=== PATIENT | male | born 1940 | race Caucasian/White ===

== ENCOUNTER → 2023-08-05 | Outpatient (CLI) | payer SELFPAY, OTHER ==
--- NOTE | 2023-08-05 12:13 | CT_ITS ---
EXAM: CT LEFT LOWER EXTREMITY WITHOUT INTRAVENOUS CONTRAST CLINICAL INDICATION: PRE OP KNEE TECHNIQUE: Helically acquired images were obtained of the left lower extremity without intravenous contrast. 2-D reformats were performed by the technologist. CTDIvol = ( 24.16 ) mGy, DLP = ( 1869.99 ) mGycm This CT exam was performed using one or more of the following dose reduction techniques: automated exposure control, adjustment of the mA and/or kV according to patient size, and/or use of iterative reconstruction technique. COMPARISON: No relevant prior studies available. FINDINGS: BONES/JOINTS: Moderate to severe tricompartmental osteoarthrosis with lateral subluxation as well as anterior subluxation of the tibia relative to the femur. Small posterior calcaneal enthesophyte. Lateral subluxation of the patella relative to the femur. Moderate suprapatellar joint effusion. No tibiotalar joint effusion. Ankle mortise intact. No acute fracture. No sclerotic or destructive changes. SOFT TISSUES: Unremarkable. No soft tissue swelling or gas. No radiopaque foreign body. No soft tissue masses or fluid collections. REPRODUCTIVE: Prostatomegaly is nonspecific. Correlate with PSA levels. CT/Extremity Lower without Contra IMPRESSION: 1. Moderate to severe tricompartmental osteoarthrosis with lateral subluxation as well as anterior subluxation of the tibia relative to the femur. 2. Lateral subluxation of the patella relative to the femur. Electronically Signed: Laci Rodríguez MD at 1:15 EST ,
== END | disposition home or self-care (01) ==
PROVIDERS: PCP Family Medicine; Referring Provider Student in an Organized Health Care Education/Training Program; Visit Provider Student in an Organized Health Care Education/Training Program
DX: M17.12 Unilateral primary osteoarthritis, left knee (principal)
CPT/HCPCS: 73700

== ENCOUNTER 2023-08-18 17:04 | Observation (INO) | payer SELFPAY, OTHER ==
--- NOTE | 2023-08-05 12:09 | EKG12_ITS ---
Test Reason : PRE OP Blood Pressure : / mmHG Vent. Rate : 096 BPM Atrial Rate : 096 BPM P-R Int : 198 ms QRS Dur : 088 ms QT Int : 322 ms P-R-T Axes : 048 146 063 degrees QTc Int : 406 ms Normal sinus rhythm Left posterior fascicular block Abnormal ECG Confirmed by JOSE FLORENCE, FRANCISCO ([id number]), news copy editor LUISITO ELLIOTT ([id number]) on 08/10/2023 12:19:49 PM Referred By: Houston Hahn Confirmed By:FRANCISCO GARCIA MD
[2023-08-05 13:45] LABS: Absolute Lymphocyte Count 2.04 X10^3/uL (0.83-4.51); Absolute Neutrophil Count 3.7 X10^3/uL (2.0-7.7); Basophil# 0.03 X10^3/uL; Basophil% 0.5 % (0-1); Eosinophils% 4.5 % (0-5); Hematocrit 49.9 % (40-54); Hemoglobin 15.8 g/dL (13.0-16.5); Lymphocyte # 2.04 X10^3/ul (0.83-4.51); Lymphocyte % 30.7 % (19-41); Mean Corp Hgb Conc 31.7 g/dL (32-36); Mean Corpuscular Hgb 30.3 pg (27.0-32.0); Mean Corpuscular Volume 95.6 fL (80-94); Mean Platelet Vol. 9.2 fl (6.2-12.0); Monocyte# 0.53 X10^3/uL; NRBC Flagged by Analyzer 0 % (0-5); Neutrophil # 3.72 X10^3/uL (2.7-7.7); Neutrophil % 55.8 % (47-70); Platelet Count 168 K/mm3 (150-450); RBC Distribution Width CV 13.2 % (11.6-14.6); Red Blood Count 5.22 M/mm3 (4.6-6.2); White Blood Count 6.7 K/mm3 (4.4-11.0)
[2023-08-05 14:06] LABS: Albumin, Serum 3.7 g/dL (3.2-5.0); Anion Gap 0 (5-15); BUN 28 mg/dL (7-18); BUN/Creat Ratio 14.7 RATIO (10-20); Calcium,Total 9.1 mg/dL (8.5-10.1); Chloride 102 mmol/L (98-107); Creatinine, Serum 1.91 mg/dL (0.70-1.30); EST Glomerular Filtration Rate 36 mL/min (>60); Est Glom Filt Rate - Afr Amer 44 mL/min (>60); Glucose 98 mg/dL (74-106); Potassium 4.3 mmol/L (3.5-5.1); Sodium Level 139 mmol/L (136-145)
[2023-08-05 14:08] LABS: Magnesium 2.6 mg/dL (1.6-2.6)
[2023-08-05 14:24] LABS: Hemoglobin A1c 5.7 % (3.8-5.6)
[2023-08-18] VITALS (14 sets, daily range): BP systolic 82–129; BP diastolic 56–70; PULSE 61–99; RESP 10–18; TEMP 36.4–37; O2SAT 65–99; BMI 29.2
[2023-08-18] MEDS: Lactated Ringers 1,000 ML 999 ML IV (06:10)
[2023-08-18] MEDS: Magnesium 1 GM over 15 mins IV (06:11)
[2023-08-18] MEDS: Celecoxib 200 MG Capsule 400 MG PO (06:30)
[2023-08-18] MEDS: Acetaminophen 500 MG Tablet 1000 MG PO ×3 (06:31→21:11)
[2023-08-18] MEDS: Gabapentin 600 MG Tablet PO (06:31)
[2023-08-18 06:35] LABS: Bedside Glucose 105 mg/dL (74-106)
--- NOTE | 2023-08-18 07:30 | KNEE_PTH ---
PATIENT: ADDI PRIEST LOC: MS3 U#:[id number] AGE/SX: 82/M ROOM: [facility] [place]18[place]: Dr. Houston Hahn DO : 1940 BED: 1 DIS: 08/19/2023 SPEC #: [id number] RECD: 08/18/23 10:55 STATUS: ANNEMARIE BRUNNER #: [id number] MARINA: 08/18/23 07:[address]: Houston Hahn DEPT: SURGICAL PATHOLOGY RECD BY: Any Woodruff ENTERED: 08/18/23 13:09 SP TYPE: TOTAL KNEE OTHR DR: Dr. Ti Coyle DO Tissues: Knee, NOS Procedures: Decalcification bone/plaque Surgery Specimen Level IV HEADER OPERATION: Robotic assisted left total knee arthroplastyLINDA MAKO PRE-OP DIAGNOSIS: Left knee osteoarthritis TISSUE SUBMITTED: Left total knee resection MICROSCOPIC DIAGNOSIS Left knee, total knee replacement/resection: Pieces of bone with degenerative osteoarthritic changes. Fibroadipose tissue, fibroconnective tissue and reactive synovial tissue. BRE:trisha 08/24/2023 MICROSCOPIC DESCRIPTION Slides are reviewed. GROSS DESCRIPTION Received is one container designated left knee resection. The specimen consists of multiple fragments of jonas-yellow bone measuring in aggregate 16.0 x 12.0 x 2.0 cm. Also in the specimen container are multiple fragments of yellow-white soft tissue measuring in aggregate 9.0 x 8.0 x 2.0 cm. A number of bony fragments contain articular surfaces consistent with tibial plateau and femoral condyle and displaying prominent osteophyte formation, eburnation and bone erosion. Real Estate Executive Assistant sections are submitted in two cassettes as follows: 1 - soft tissue, 2 - bone after decalcification. / AM:trisha 08/18/2023 TC:5 CPT: 51430, 06652
[2023-08-18] MEDS: Lactated Ringers 1,000 ML 75 ML IV ×3 (07:42→11:40)
[2023-08-18] MEDS: Cefazolin 2 GM in 0.9% Normal Saline (100mL Bag) 100 ML IV (07:42)
[2023-08-18] MEDS: dexAMETHasone 10 MG/ML Vial IV (08:00)
[2023-08-18] MEDS: TXA 1000mg in NS100 100ml (IVPB at Incision) 660 MG IV (08:02)
[2023-08-18] MEDS: TXA 1000mg in NS100 100ml (IVPB at Closure) 660 MG IV (09:27)
[2023-08-18] MEDS: JPS (Morphine 10mg/ml) OPERA.SITE (09:35)
--- NOTE | 2023-08-18 13:14 | OP.PCM_ITS ---
Report of Operation Date of Procedure: 08/18/23 Description of Surgical Findings:: Preoperative diagnosis: Left knee primary osteoarthritis Postoperative diagnosis: Left knee primary osteoarthritis Procedure: Cemented left total knee arthroplasty Surgeon: Houston Hahn DO Patternmaker Sample: Rosalia Rosario PA-C Anesthesia: General by postoperative adductor canal block Anesthesiologist: Dr. Cornell Complications: None apparent Drains: None Estimated blood loss: 50 cc Urinary output: None recorded IV fluids: 1800 cc crystalloid Specimens: Total knee resections Surgical implants: Christiane triathlon cruciate retaining femoral #5, primary tibial baseplate #5, triathlon X3 tibial bearing insert CS 11 mm thickness Indications: This is a 82-year-old male seen in the outpatient setting diagnosed with left knee osteoarthritis with significant valgus deformity. He failed nonoperative management with intra-articular corticosteroid injections, activity modification, bracing, vyzx-ang-rdcvrog analgesics. X-rays revealed grade 4 lateral compartment changes. Patellofemoral joint was relatively preserved. I recommended a left total knee arthroplasty. The risk, benefits, alternatives to procedure reviewed with patient at length and he agreed to proceed. Risks included but were not limited to bleeding, infection, loss of life or limb, need for additional surgery, persistent pain, intraoperative or postoperative fracture, instability, loosening of components, wound complications, stiffness, neurovascular injury, DVT or PE. Patient expressed understanding these risks and wished to proceed with surgery. Informed consent was obtained in the outpatient setting. Description of procedure: Patient was identified in the preoperative holding area by name, medical record number, and date of . Informed set was confirmed with the patient. The operative knee was marked with a surgical marker. At time of his procedure, patient brought to the operative suite and positioned supine a standard operating table. General anesthesia was induced and LMA was placed. All bony prominences were well-padded. We then placed a well-padded pneumatic tourniquet on the left upper thigh. The left upper extremity was brought across patient's chest throughout the procedure. We then prepped and draped the left lower extremity in a normal, sterile orthopedic fashion. We performed a timeout with all parties in attendance in agreement with the side, site, operation be performed. No concerns were voiced and would like to proceed with surgery. 2 g Ancef was administered prior to the incision by anesthesia staff as well as 1 g IV TXA. First I exsanguinated the left lower extremity with a Esmarch bandage. Tourniquet was inflated to 280 mmHg which remained up for 68 minutes. Esmarch was removed. I planned a standard midline approach to the left knee approximately 15 cm in length. Skin was sharply incised with a 10 blade scalpel developing full-thickness layers down to the retinaculum. Layers were developed identifying the VMO. I then planned a standard medial parapatellar arthrotomy performed in flexion. The anterior horn of the medial meniscus was released. Hoffa's fat pad was then released. I then everted the patella in extension and brought the knee into 90 degrees of flexion. The anterior horn of the lateral meniscus was then released. The ACL was split in its mid substance with a 10 blade. I then placed pins in the metaphyseal distal femur medial to lateral for the Pastor arrays. In similar fashion, I made a 2 cm incision approximately a handsbreadth distal to the tibial tubercle along the medial aspect of the tibia, drilling 2 bicortical pins for the tibial array. The knee was brought into flexion. The patella was subluxed laterally but not everted. Medial lateral retractors were placed. We then utilized the [employer] software to confirm our planned surgical procedure and oriented with the patient's osseous anatomy. All checks with the [employer] system were confirmed. Patient had a significant fixed varus deformity after performing stress examination utilizing the [employer] software. Sawblade was then brought in. I first started with the tibial cut, ensuring protection of the MCL and patellar tendon. A tibial wafer was then excised. I then proceeded to make the posterior femoral, anterior, anterior chamfer cuts with the same blade. Ligaments were protected with [employer] retractors. Sawblade was then exchanged to perform the distal femoral and posterior chamfer cuts. The robot was then removed from the surgical field. Remaining loose bone and meniscus was excised carefully. Posterior osteophytes were removed from the distal femur with a curved osteotome and rongeur. Trial components were then placed. Balance was excellent in both extension and 90 degrees flexion. No mid flexion instability was apparent. Patella was reduced and Tracking was excellent. We then marked for tibial baseplate. Distal femoral pegs were drilled. Tibial keel was punched. Trials were removed. Periarticular block was administered. The wound was copiously irrigated with normal saline solution. Simplex cement was then mixed on the back table. Components were then cemented in place with excess cement being removed. Cement was allowed to cure with the components in full extension utilizing a 11 mm trial polyethylene component. While the cement was curing, Betadine solution was irrigated into the wound and the wound edges for 3 minutes. After cement had cured fully, trial polyethylene was removed. Tourniquet was deflated. Hemostasis was excellent. An additional 1 g TXA was administered IV. I selected a size 11 mm polyethylene which was placed and impacted per medical and scientific illustrator recommendations. Final components appeared very well balanced with excellent range of motion. The wound was copiously irrigated with normal saline solution. Capsule was closed watertight with #1 strata fix barbed suture. Deeper report muscle layer was reapproximated with 0 Vicryl suture. Dermis was reapproximated buried interrupted 2-0 Vicryl suture. Skin was finally reapproximated thomas. Patient tolerated the procedure well without apparent complication. He was safely awakened in the operative suite, transferred to his hospital bed and subsequently to PACU in stable condition. Need for skilled or assistant: Rosalia Rosario PA-C was critical to the outcome of the case. During the course of the procedure the physician or assistant played a vital role. Her intimate knowledge of my steps in the procedure aided in safe and expedient completion of the procedure. The PA played a vital role in positioning particularly in obtaining the appropriate positioning. The PA was also vital in the retraction of soft tissues during the exposure and projecting vital structures. The PA was also vital and protecting soft tissues during times of bony cuts. She also played a vital role in closure with my direct supervision. The PA was also important during reduction and dislocation of the joint and trials intraoperatively. Post Operative Plan: Patient will be placed in observation overnight for medical monitoring and early convalescence Weightbearing: Range of motion and weightbearing as tolerated left lower extremity. Antibiotics: Ancef 1 g every 8 hours x 3 doses DVT Prophylaxis: Twice daily Eliquis to start tomorrow, SCDs, early mobilization Jha: None Dressing: Maintain silver dressing x7 days X-Rays: 2-week x-rays in the office. Follow-up: 2 weeks in my office for staple removal
--- NOTE | 2023-08-18 13:38 | PN.HOSP_ITS ---
Reason for Visit Reason for Visit: Diagnoses Encounter for other preprocedural examination (08/18/23) Subjective Subjective Patient is s/p left total knee arthroplasty with Dr. Hahn this morning for severe left knee osteoarthritis. Patient seen at bedside in the early afternoon, and son present. Patient was sitting comfortably in bed, conversing normally, no acute distress. Appeared to be fully recovered from a mental status standpoint from anesthesia this morning. Patient was eating his lunch during my interview and was feeling hungry. Reported mild left knee pain, plan was to receive pain medication after he ate his lunch. He otherwise denied any chest pain, shortness of breath, fevers or chills, abdominal pain or discomf ort. No other acute concerns at this time. Objective Data Objective Data Vital Signs: Vital Signs Temp Pulse Resp BP Pulse Ox O2 Del Method O2 Flow Rate 97.6 F L 93 16 103/69 94 Nasal Cannula 2 08/18/23 12:24 08/18/23 12:24 08/18/23 12:24 08/18/23 12:24 08/18/23 12:24 08/18/23 12:44 08/18/23 12:44 FiO2 100 08/18/23 10:45 Oxygen Flow Rate (L/min) 2 Oxygen Delivery Method Nasal Cannula Weight: 93.8 kg Body Mass Index (BMI) 29.2 Intake & Output: Intake and Output for Last 24 Hours 08/16/23 08/17/23 08/18/23 23:59 23:59 23:59 Intake Total 3432 / 3432 Balance 3432 / 3432 Lab / Micro Data 08/05/23 13:27 08/05/23 13:27 Labs: Laboratory Results - last 24 hr 08/18/23 06:17: POC Glucose 105 Micro: Microbiology 08/05/23 13:27 Swab (Method) Nasal Screen MRSA/MSSA - Final Physical Exam Const alert, oriented x3, no apparent distress and average body habitus Constitutional Narrative: Pleasant elderly male, sitting comfortably in bed, conversing normally, no acute distress. General Appearance: cooperative and comfortable HEENT normocephalic, head/scalp atraumatic, hearing grossly normal bilaterally, nasal mucous membranes and turbinates normal and moist oral mucous membranes Eyes PERRL, EOMs intact bilaterally and conjunctivae normal Neck full ROM, no lymphadenopathy and supple Lymph Lymphatic: no lymphadenopathy noted Chest inspection of chest normal Resp normal respiratory effort, normal air movement, no use of accessory muscles and clear to auscultation bilaterally Cardio regular rate, regular rhythm, no murmurs and peripheral pulses 2+ throughout GI normal to inspection, nondistended, normoactive bowel sounds, soft to palpation, non-tender and non-distended Back/Spine normal ROM Extremity Extremity Narrative: Left knee with large ice pack in place. SCDs in place bilaterally. Skin no rashes or lesions noted Neuro moves all extremities and no focal motor deficits Speech: speech normal Psych mental status grossly normal Assessment & Plan Assessment/Plan (1) Osteoarthritis of left knee: PLAN: Plan Patient is an 82-year-old male who presented to [facility] on 08[facility] for planned orthopedic procedure. Medicine consulted postoperatively for medical management. 1. Left knee primary osteoarthritis S/p left total knee arthroplasty with Dr. Hahn with orthopedics on 08/18. Patient tolerated procedure well. Seen at bedside in the afternoon after operation, was sitting comfortably in bed and eating his lunch, reported mild left knee pain that was tolerable with pain medication, otherwise no concerns. ? Orthopedic surgery primary patient. PT/OT/case management consulted. Pain control with scheduled Tylenol, as needed p.o. oxycodone. Continued home gabapentin and duloxetine. Follow-up a.m. labs. Eliquis 2.5 mg twice daily for DVT prophylaxis. Per patient and family, patient is very functional at baseline and wants to go home on discharge. If remains stable, likely okay for discharge home tomorrow with plan for outpatient physical therapy. Chronic medical conditions: ? BPH: Continued home Flomax. ? Insomnia: Continued home trazodone and Klonopin at night. ? GERD: Continued home PPI. DVT prophylaxis: Eliquis CODE STATUS: Full code, verified Expected disposition: Home, tomorrow Total clinical time spent by myself addressing the patient's medical issues, reviewing all the data, and collaborating with patient's care team: 25 minutes. Charges/Coding Visit Charges Inpatient E&M: 23376 [facility] L1
[2023-08-18] MEDS: oxyCODONE 5 MG Tablet PO ×2 (14:28→18:51)
[2023-08-18] MEDS: Cefazolin 1 GM/50 ML BAG IV ×2 (14:29→21:13)
[2023-08-18] MEDS: Tamsulosin HCl 0.4 MG Capsule PO (17:47)
[2023-08-18] MEDS: Gabapentin 800 MG Tablet PO (17:47)
[2023-08-18] MEDS: Senna/Docusate Sodium 1 Tablet 2 TABLET PO (21:12)
[2023-08-18] MEDS: clonazePAM 1 MG Tablet 2 MG PO (21:12)
[2023-08-18] MEDS: traZODone 50 MG Tablet PO (21:12)
[2023-08-19] MEDS: oxyCODONE 5 MG Tablet PO ×2 (00:39→05:29)
[2023-08-19 00:43] VITALS: BP 105/64; PULSE 88; RESP 16; TEMP 36.8; O2SAT 94
[2023-08-19] MEDS: Acetaminophen 500 MG Tablet 1000 MG PO (05:29)
[2023-08-19 05:43] VITALS: BP 121/70; PULSE 82; RESP 18; TEMP 37.2; O2SAT 95
[2023-08-19 06:21] LABS: Mean Corp Hgb Conc 32.5 g/dL (32-36); Mean Corpuscular Hgb 30.5 pg (27.0-32.0); Mean Corpuscular Volume 93.9 fL (80-94); Platelet Count 116 K/mm3 (150-450); RBC Distribution Width CV 13.2 % (11.6-14.6); RBC Distribution Width SD 45.2 fl (35.1-43.9); Red Blood Count 4.26 M/mm3 (4.6-6.2); White Blood Count 8.5 K/mm3 (4.4-11.0)
[2023-08-19 07:16] LABS: Anion Gap 6 (5-15); BUN 31 mg/dL (7-18); BUN/Creat Ratio 15.4 RATIO (10-20); Calcium,Total 8.1 mg/dL (8.5-10.1); Chloride 103 mmol/L (98-107); Creatinine, Serum 2.01 mg/dL (0.70-1.30); EST Glomerular Filtration Rate 34 mL/min (>60); Est Glom Filt Rate - Afr Amer 41 mL/min (>60); Estimated Creatinine Clearance 30.27 ml/min; Glucose 147 mg/dL (74-106); Potassium 4.3 mmol/L (3.5-5.1); Sodium Level 138 mmol/L (136-145)
[2023-08-19] MEDS: Gabapentin 800 MG Tablet PO (10:46)
[2023-08-19] MEDS: DULoxetine Hcl 60 MG Capsule PO (10:46)
[2023-08-19] MEDS: Senna/Docusate Sodium 1 Tablet 2 TABLET PO (10:46)
[2023-08-19] MEDS: APIXABAN 2.5 MG TABLET (WCH) PO (10:46)
[2023-08-19] MEDS: Famotidine 20 MG Tablet PO (10:46)
[2023-08-19 10:55] VITALS: BP 118/58; PULSE 65; RESP 16; TEMP 36.6; O2SAT 95
--- NOTE | 2023-08-19 11:09 | CASEMGMT ---
SATISH ARGUETA Assessment: Face to Face with pt for initial transition planning/care coordination assessment. SATISH ARGUETA introduced self and role at [facility], pt voices understanding and consents to assessment. Pt's is present in the room and also helps to provide some of the below information. Pt is A&O x4 and answers all questions appropriately at this time. Care providers, pharmacy, and demographics verified/updated. Admitting Dx: Robotic Assisted Left Total Knee AR PCP: Leonides Specialists:Pt. states none. Preferred Pharmacy: [facility] Retail Insurance: [employer] ([facility] Package Plan) Prescription Benefit: no LNOK: Nichol Bishop () Living Will/HCPOA: No and No. Pt. and decline to receive information on ADs. Living Arrangements: Pt lives with his in a 1 story home with a basement where the laundry is; otherwise it is a FFSU. 6 steps with railint to enter. Prior to this admission, pt. states he was I in all ADLs and his does the IADLs. Transportation: [employer] Att[employer] (Pt. plans to use [facility] Van for transport home) DME: raised toilet seat, cane, grab bars, walker, potato picker. Pt. declines to receive information on medical alert systems. Pt's asks about getting a pulse ox and SATISH ARGUETA informed her these can be purchased OTC and pt's states they can afford to do this OTC. Pt. denies need for any additional DME. HHC/SNF: denies previous SNF/HHC. Pt. denies need for HHC services upon discharge. States he already has outpatient PT scheduled at [facility] for Tuesday. Pt states no concerns with going home at time of dc. Pt states no further concerns/needs. CM to follow. Advised pt to ask CM if any further question/concerns/needs arise, voices understanding. Pt Goal: Home with family support, outpatient PT at [facility] on Tuesday, and additional follow-up plans in place. Plan: Home with family support, outpatient PT at [facility] on Tuesday, and additional follow-up plans in place.
--- NOTE | 2023-08-19 11:27 | PCM.PN.ORT ---
Subjective Subjective Patient is s/p left sided total knee arthroplasty with Dr. Hahn on .. Patient resting comfortably in bed. Rates pain 2/ 10 at rest. With movement 5/10. States taking Tylenol and oxycodone and ice help to relieve pain. Patient has been up with therapy. Walking with the assit of a walker. Afebrile, no chest pain, shortness of breath, negative calf pain/ erythema, and no other signs of DVT. Objective Data Objective Data Vital Signs: Vital Signs Temp Pulse Resp BP Pulse Ox O2 Del Method O2 Flow Rate 98 F 65 16 118/58 L 95 Room Air 2 08/19/23 10:55 08/19/23 10:55 08/19/23 10:55 08/19/23 10:55 08/19/23 10:55 08/19/23 10:55 08/18/23 15:53 FiO2 100 08/18/23 10:45 Oxygen Flow Rate (L/min) 2 Oxygen Delivery Method Room Air Weight: 93.8 kg Body Mass Index (BMI) 29.2 Intake & Output: Intake and Output for Last 24 Hours 08/17/23 08/18/23 08/19/23 23:59 23:59 23:59 Intake Total 3532 / 3532 1000 / 1000 Output Total 250 / 250 Balance 3282 / 3282 1000 / 1000 Lab / Micro Data 08/19/23 05:31 08/19/23 05:31 Labs: Laboratory Results - last 24 hr 08/19/23 05:31: WBC 8.5, RBC 4.26 L, Hgb 13.0, Hct 40.0, MCV 93.9, MCH 30.5, MCHC 32.5, RDW Std Deviation 45.2 H, RDW Coeff of Anna 13.2, Plt Count 116 L, MPV 9.0, Sodium 138, Potassium 4.3, Chloride 103, Carbon Dioxide 29.0, Anion Gap 6, BUN 31 H, Creatinine 2.01 H, Estim Creat Clear Calc 30.27, Est GFR (MDRD) Af Amer 41 L, Est GFR (MDRD) Non-Af 34 L, BUN/Creatinine Ratio 15.4, Glucose 147 H, Calcium 8.1 L Micro: Microbiology 08/05/23 13:27 Swab (Method) Nasal Screen MRSA/MSSA - Final Physical Exam Narrative Patient resting comfortably in bed No signs of acute distress Satting well on room air Limb is warm to touch, Sensation intact throughout entire lower extremity, including saphenous, sural, superficial and deep peroneal, and tibial distribution. DP/PT pulses bounding. Dorsiflexion plantarflexion strength 5/5 Dressing clean dry intact Calf nontender to palpation, no erythema, no edema. Negative Homans Assessment & Plan Assessment/Plan (1) S/P total knee arthroplasty: PLAN: 1. Will continue PT today. WBAT 2. plan for discharge this afternoon following PT 3. Patient will follow up for post op appointment as previously scheduled in 2 weeks in our office. 4. Patient has outpatient PT appointment as previously scheduled. 5. No acute reactive leukocytosis 6. No post operavtive anemia 7. DVT prophylaxis : Eliquis 2.5 mg twice daily times least 4 weeks 8. Pain control: patient instructed to take tylenol 500mg 2 tablets TID. and oxycodone 1-2 tablets every 4-6 hours only as needed for pain control. 9. ok to remove post op dressing. post op day 7 (2) Osteoarthritis of left knee:
--- NOTE | 2023-08-19 11:35 | PCM.DC ---
Discharge Instructions Diet Discharge Diet: No restrictions Activity Discharge Activity: Return to Normal Activity Weight Bearing Status: Weight bearing as tolerated Keep extremity elevated above heart level: Left Leg Dressing / Incision Call your doctor if your incision/area has: Continuous Slow Oozing, Sudden Increased Bleeding, Increased Pain/ Swelling, Increased Redness, Foul Smelling Discharge and Swelling at the incision site Call your doctor if you observe: Fever of 101 or Higher, Inability to have a bowel movement, Dizziness, Chest pain and Calf discomfort Remove Dressing in: 1 week Cleanse incision/area with: Soap & Water and Keep Dressing Clean & Dry Follow Up Care When: Follow-up as previously scheduled in our office at [facility] Test Results: Test results from this visit will be discussed in further detail at your follow-up appointment, if applicable. Discharge Plan Admission Admit Date/Time: 08/18/23 17:04 Attending Provider: Houston Hahn Primary Care Provider: Ti Coyle Consulting Providers: Lupe Hernandes Discharge Orders/Prescriptions Prescriptions: New acetaminophen 500 mg Tablet 1,000 mg PO Q8 Qty: 180 0RF Eliquis 5 mg Tablet 2.5 mg PO BID Qty: 56 0RF oxycodone 5 mg Tablet 5 - 10 mg PO .q4-6 hours prn PRN (Reason: Pain Score 4-10) 7 Days Qty: 60 0RF sennosides-docusate sodium [Stool Softener-Stimulant Laxat] 8.6-50 mg Tablet 2 tab PO BID Qty: 10 0RF Continued gabapentin 800 MG tablet 800 mg PO DAILY Patient Comments: pain clonazepam [Klonopin] 2 MG tablet 2 mg PO QHS Patient Comments: anxiety duloxetine 60 MG capsule 60 mg PO DAILY biokz-[id number]-epa-fish oil 1 EACH capsule 1 ea PO BID tamsulosin 0.4 MG capsule 0.4 mg PO DAILY@1730 Qty: 30 0RF trazodone 50 mg tablet 50 mg PO .Q HS Patient Comments: TAKE ONE TABLET BY MOUTH ONCE DAILY AT BEDTIME NEEDED calcium carbonate-vitamin D3 500 mg-3.125 mcg (125 unit) tablet 1 tab PO DAILY zinc 50 mg capsule 50 mg PO DAILY Discontinued tramadol 50 MG tablet 100 mg PO TID Patient Comments: pain Referrals / Follow Up: Ti Coyle DO [Primary Care Provider] -
--- NOTE | 2023-08-19 12:50 | CASEMGMT ---
SATISH ARGUETA contacted [facility] and they informed SATISH ARGUETA that they can transport pt.and his home at 2pm today. SATISH ARGUETA informed pt's nurse of this. Pt. has order in for discharge. SATISH ARGUETA in to pt. room to discuss needs at discharge. Pt. denies having any needs at this time. Pt. informed that [facility] can transport he and his home today at 1400. SATISH ARGUETA informed pt. that we did a read check on his Eliquis at [facility] and the read is $525.83. Pt and his state that pt. already has Elquis at home that will last pt. for the amount he needs to match the order on his hospital discharge paperwork, and they decline to fill the Eliquis order at [facility]. SATISH ARGUETA discussed with pt. and his the importance of pt. being on the Eliquis and they voice understanding. Pt. and his do ask for the other discharge medications to be brought up to his room prior to discharge. SATISH ARGUETA informed pt. I will ask pharmacy to bring up his medications before 1400 today. Pt. and his deny having any additional questions/concerns at this time. SATISH ARGUETA contacted [facility] and informed them that pt. has chosen not to fill his Eliquis script at this time as he states he already has this medication at home, and that pt. requests to have his other discharge medications brought to his room prior to his ride home at 1400.
--- NOTE | 2023-08-19 13:27 | PN_ITS ---
Subjective Subjective Patient seen and examined. was by his bedside. He had no active complaints. Pain is well-controlled. Today's postop day 1 for left knee replacements with severe left knee osteoarthritis. Objective Data Objective Data Vital Signs: Vital Signs Temp Pulse Resp BP Pulse Ox O2 Del Method O2 Flow Rate 98 F 65 16 118/58 L 95 Room Air 2 08/19/23 10:55 08/19/23 10:55 08/19/23 10:55 08/19/23 10:55 08/19/23 10:55 08/19/23 10:55 08/18/23 15:53 FiO2 100 08/18/23 10:45 Oxygen Flow Rate (L/min) 2 Oxygen Delivery Method Room Air Weight: 206 lb 12.697 oz Body Mass Index (BMI) 29.2 Intake & Output: Intake and Output for Last 24 Hours 08/17/23 08/18/23 08/19/23 23:59 23:59 23:59 Intake Total 3532 / 3532 1000 / 1000 Output Total 250 / 250 Balance 3282 / 3282 1000 / 1000 Lab / Micro Data 08/19/23 05:31 08/19/23 05:31 Labs: Laboratory Results - last 24 hr 08/19/23 05:31: WBC 8.5, RBC 4.26 L, Hgb 13.0, Hct 40.0, MCV 93.9, MCH 30.5, MCHC 32.5, RDW Std Deviation 45.2 H, RDW Coeff of Anna 13.2, Plt Count 116 L, MPV 9.0, Sodium 138, Potassium 4.3, Chloride 103, Carbon Dioxide 29.0, Anion Gap 6, BUN 31 H, Creatinine 2.01 H, Estim Creat Clear Calc 30.27, Est GFR (MDRD) Af Amer 41 L, Est GFR (MDRD) Non-Af 34 L, BUN/Creatinine Ratio 15.4, Glucose 147 H, Calcium 8.1 L Micro: Microbiology 08/05/23 13:27 Swab (Method) Nasal Screen MRSA/MSSA - Final Physical Exam Const alert, oriented x3, no apparent distress and well nourished General Appearance: cooperative HEENT normocephalic, head/scalp atraumatic, moist oral mucous membranes and oropharynx normal Eyes PERRL and EOMs intact bilaterally Neck no lymphadenopathy and supple Lymph Lymphatic: no lymphadenopathy noted and no lymphedema noted Resp normal respiratory effort, normal air movement and clear to auscultation b ilaterally Cardio regular rhythm, S1 normal heart sound, S2 normal heart sound and no murmurs GI normal to inspection, nondistended, normoactive bowel sounds and soft to palpation Extremity normal capillary refill, no clubbing, cyanosis or edema and no calf tenderness Extremity Narrative: left knee wrapped in bandage. Neuro CN's II-XII intact bilaterally, no focal motor deficits, no sensory deficits noted and deep tendon reflexes 2+ bilaterally Motor Exam: general weakness Psych thought process normal and cooperative Appearance: appropriate Assessment & Plan Assessment/Plan (1) S/P total knee arthroplasty: (2) Osteoarthritis of left knee: PLAN: Plan #Left knee osteoarthritis * s/p left knee replacement * today is POD 1 * on PO tylenol, oxycodone and IV morphine prn for pain * PT/OT on board. * fall precautions * eliquis 2.5mg bid for dvt prophylaxis #BPH: on flomax #GERD: n PPI #Insomnia: on trazodone and klonopin DVT prophylaxis: on eliquis. Charges/Coding Visit Charges Inpatient E&M: 35781 Subs Hosp L2
--- NOTE | 2023-08-19 13:45 | CASEMGMT ---
Social Work SW met with pt to discuss advance directives.? Pt states he has not completed a living will and health care POA. SW offered information and assistance in completing and pt and had no interest at this time. SHLOMO Sanchez
--- NOTE | 2023-08-19 13:49 | PHA.DC.MC.R ---
Pharmacy [facility] has performed discharge medication reconciliation and counseling for this patient. The patient's discharge medication list was reviewed for discrepancies and discrepancies were resolved. The patient was counseled on the following discharge medications and changes in medications for homegoing were reviewed. The Reason for Use, instructions for use, and potential side effects were reviewed for all new medications. The patient's questions regarding all of their medications were answered. 1. Acetaminophen 1000 mg PO Q8H 2. Apixaban 2.5 mg PO BID 3. Oxycodone 5-10 mg PO Q4-6H PRN pain 4-10 4. senna/docusate 2 tabs PO BID The patient was able to verbally demonstrate an understanding of their discharge medications. Medications at Discharge Home Medications clonazepam 2 mg tablet (Klonopin) 2 mg PO QHS SLEEP 11/29/16 gabapentin 800 mg tablet 800 mg PO DAILY PAIN 11/29/16 duloxetine 60 mg capsule,delayed release 60 mg PO DAILY DEPRESSION 06/13/17 omega-3s 600 [id number] [id number] oil 1,200 mg capsule 1 ea PO BID REPLACEMENT 06/13/17 tamsulosin 0.4 mg capsule 0.4 mg PO DAILY@1730 ##30 06/14/17 calcium carbonate 500 mg-vitamin D3 3.125 mcg (125 unit) tablet 1 tab PO DAILY 07/25/23 trazodone 50 mg tablet 50 mg PO .Q HS 07/25/23 zinc 50 mg capsule 50 mg PO DAILY 07/25/23 acetaminophen 500 mg tablet 1,000 mg (2 x 500 mg) PO Q8 #180 tabs 08/19/23 apixaban 5 mg tablet (Eliquis) 2.5 mg (1/2 x 5 mg) PO BID #56 tabs 08/19/23 oxycodone 5 mg tablet 5 - 10 mg (1 - 2 x 5 mg) PO .q4-6 hours prn PRN Pain Score 4-10 7 days #60 tabs 08/19/23 sennosides 8.6 mg-docusate sodium 50 mg tablet (Stool Softener-Stimulant Laxative) 2 tab PO BID #10 tabs 08/19/23
== END 2023-08-19 14:00 | disposition home or self-care (01) ==
LOC: SDC 17:31 → MS3 08-19 07:23
PROVIDERS: Anesthesiology; Admitting Provider Student in an Organized Health Care Education/Training Program; PCP Family Medicine; Referring Provider Student in an Organized Health Care Education/Training Program; Visit Provider Student in an Organized Health Care Education/Training Program
PROC: 0SRD0JZ Replacement of Left Knee Joint with Synthetic Substitute, Open Approach (ICD-10-PCS; CPT 27447; principal; 2023-08-18 07:00)
DX: M17.0 Bilateral primary osteoarthritis of knee (principal); M21.062 Valgus deformity, not elsewhere classified, left knee; Z79.899 Other long term (current) drug therapy; Z86.718 Personal history of other venous thrombosis and embolism; Z79.01 Long term (current) use of anticoagulants; E78.00 Pure hypercholesterolemia, unspecified; F17.210 Nicotine dependence, cigarettes, uncomplicated; M21.061 Valgus deformity, not elsewhere classified, right knee; R03.0 Elevated blood-pressure reading, without diagnosis of hypertension; N40.0 Benign prostatic hyperplasia without lower urinary tract symptoms; K21.9 Gastro-esophageal reflux disease without esophagitis; G47.00 Insomnia, unspecified
CPT/HCPCS: 27447; 01402; S2900; 64447; 36415; 80048; 82040; 82962; 83036; 83735; 85025; 85027; 87081; 88305; 88311; 93005; 94668; 96361; 96365; 96366; 97110; 97162; 97166; 97530; 97535; 99221; 99252; 99406; C1776; J7120; G0378; G0463; J2405; J3475

== ENCOUNTER → 2023-10-03 | Outpatient (CLI) | payer SELFPAY, OTHER ==
--- NOTE | 2023-10-03 15:43 | VDLE_ITS ---
Reason For Study: Left leg pain RIGHT LEFT CFV is compressible, spontaneous, phasic, GSV is normal. competent and demonstrates normal Acute deep vein thrombosis is noted in the augmentation. left CFV and GastrocV. It is NONCOMPRESSIBLE. Procedure FV is partially compressible thoughout with This is a venous duplex using B-mode, color venous flow noted flow and spectral Doppler. Pop V is partially compressible with veous Exam performed in department. flow noted. A preliminary report was called and/or faxed T/P Trunk is compressible. to Pauly (Ortho) and Dr. Coyle (PCP). PTV is compressible. LT PerV is compressible. VL/Venous Duplex US, Unilateral Interpretation Summary Acute deep venous thrombosis with visible thrombus noted in the left common fem oral vein. Acute deep venous thrombosis left femoral and popliteal and gastrocnemius veins . Patent and compressible left great saphenous vein Normal flow patterns right common femoral vein Ordering Physician: Houston Hahn Referring Physician: Ti Coyle Performed By: Linda Riley RVT
--- OUTSIDE RECORDS SUMMARY | 2023-10-03 16:03 | XMS RPT_ITS | CCD ---
Author Name Unknown Address [address] [place] [address] Organization [facility] Care Team Providers Care House Sitter Name Role Phone MEGHANN ORELLANA Unavailable Unavailable PAINTSIL, AMA N Unavailable Unavailable MEGHANN ORELLANA Unavailable Unavailable YANELI GALLARDO Consulting Unavailable MONICO MCCORMICK Admitting Unavailable MONICO MCCORMICK Primary Care Unavailable MONICO MCCORMICK Attending Unavailable PROVIDER, UNKNOWN Consulting Unavailable PROVIDER, UNKNOWN Consulting Unavailable PROVIDER, UNKNOWN Consulting Unavailable Allergies Allergy Classification Reported Allergen(s) Allergy Type Date of Onset Reaction(s) Facility (2 sources) amoxicillin; Translations: [AMOXICILLIN] Drug Allergy 7 [facility] Repository (1 source) Penicillins; Translations: [PENICILLINS] Propensity to adverse reactions to drug (disorder) 7 [facility] Repository (1 source) Sulfonamides (Antibiotic); Translations: [SULFA (SULFONAMIDE ANTIBIOTICS)] Propensity to adverse reactions to drug (disorder) 7 [facility] Repository (1 source) OTHER; Translations: [OTHER] Propensity to adverse reactions (disorder) 2 [facility] Repository (1 source) Penicillin Drug Allergy [facility] Repository Problems Problem Classification Problem Date Documented Da te Episodic/Chronic Coagulation and hemorrhagic disorders (1 source) Thrombocytopenia , unspecified; Translations: [Thrombocytopeni a, unspecified] Onset: 06-28-2017 Chronic Results Test Name Value Interpretation Reference Range Facil ity Encounters Encounter Date Encounter Type Care Provider Facility Start: 07-12-2022 End: 07-12-2022 ambulatory [facility] Start: 06-28-2017 End: 06-29-2017 Ambulatory MEGHANN ORELLANA [facility] Summary Purpose Family History No Family History Records FoundNo Family History Records Found Advance Directives No Advanced Directives Records FoundNo Advanced Directives Records Found Additional Source Comments (unrecognized sect ion and content) No Status Records FoundNo Status Records Found INFORMATION SOURCE (unrecogn ized section and content) DATE CREATED AUTHOR AUTHOR'S AUGUSTUS ATION 07/15/2022 [facility] FOR RECORDS PERTAINING TO PATIENTS WHO ARE OR HAVE BEEN ENROLLED IN A CHEMICAL DEPENDENCY/SUBSTANCEABUSE PROGRAM, SOME INFORMATION MAY BE OMITTED. This clinical summary was aggregated from multiple sources. Caution should be exercised in using it in the provision of clinical care. This summary normalizes information from multiple sources, and as a consequence, information in this document may materially change the coding, format and clinical context of patient data. In addition, data may be omitted in some cases. CLINICAL DECISIONS SHOULD BE BASED ON THE PRIMARY CLINICAL RECORDS. [facility]. provides no warranty or guarantee of the accuracy or completeness of information in this document.
== END | disposition home or self-care (01) ==
PROVIDERS: PCP Family Medicine; Referring Provider Student in an Organized Health Care Education/Training Program; Visit Provider Student in an Organized Health Care Education/Training Program
DX: M79.662 Pain in left lower leg (principal)
CPT/HCPCS: 93971